=== PATIENT | male | born 1995 | race Two or more races ===

== ENCOUNTER 2020-03-18 23:03 | Emergency (ER) | payer SELFPAY ==
[~2020-03-18] VITALS: Ht 162.6 cm; Wt 63.6 kg
--- NOTE | 2020-03-18 23:25 | PHYS DOC ---
General Adult EDM: Chief Complaint: OVERDOSE HPI: HPI: The history was obtained from the patient and EMS. Patient is a 24-year-old male with no reported PMH who presents with a chief complaint of unresponsiveness. EMS were called to the patient's house for unresponsiveness. They state the family called because patient was found down. Upon EMS arrival the patient had agonal respirations with a GCS of 3. They did administer 2 mg of intravenous Narcan which did improve the patient's responsiveness almost immediately. Patient tells me that he does not have any recollection of events leading up to his unresponsiveness. Denies any drug or alcohol abuse. Denies any pill ingestions today. Denies any suicidal homicidal ideations. States he does not have any physical complaints. Has no recollection of the events leading up to his presentation to the emergency department. Review of Systems: Review of Systems: Constitutional: Positive for unresponsiveness. Eyes: Denies change in visual acuity. [] HENT: Denies nasal congestion or sore throat. [] Respiratory: Denies cough or shortness of breath. [] Cardiovascular: Denies chest pain or edema. [] GI: Denies abdominal pain, nausea, vomiting, bloody stools or diarrhea. [] : Denies dysuria. [] Musculoskeletal: Denies back pain or joint pain. [] Integument: Denies rash. [] Neurologic: Denies headache, focal weakness or sensory changes. [] Endocrine: Denies polyuria or polydipsia. [] Lymphatic: Denies swollen glands. [] Psychiatric: Denies depression or anxiety. [] Heart Score: Risk Factors: Risk Factors: DM, Current or recent (<one month) smoker, HTN, HLP, family history of CAD, obesity. Risk Scores: Score 0 - 3: 2.5% MACE over next 6 weeks - Discharge Home Score 4 - 6: 20.3% MACE over next 6 weeks - Admit for Clinical Observation Score 7 - 10: 72.7% MACE over next 6 weeks - Early Invasive Strategies Physical Exam: PE: Constitutional: Well developed, well nourished, no acute distress, non-toxic appearance. [] HENT: Normocephalic, atraumatic, bilateral external ears normal, oropharynx moist, no oral exudates, nose normal. [] Eyes: PERRLA, EOMI, conjunctiva normal, no discharge. [] Neck: Normal range of motion, no tenderness, supple, no stridor. [] Cardiovascular:Heart rate regular rhythm, no murmur [] Lungs & Thorax: Bilateral breath sounds clear to auscultation [] Abdomen: soft, no tenderness, no masses, no pulsatile masses. [] Skin: Warm, dry, no erythema, no rash. [] Back: No tenderness, no CVA tenderness. [] Extremities: No tenderness, no cyanosis, no clubbing, ROM intact, no edema. [] Neurologic: Alert with intact cognitive function. No aphasia, dysarthria, or neglect. GCS 15. Pupils 3 mm briskly reactive b/l. No APD present. Cranial nerves 2-12 grossly intact; no facial asymmetry present, tongue midline, shoulder shrugging strength intact. Strength 5/5 and symmetric throughout. Light touch sensation intact throughout. Cerebellar testing appropriate without evidence of dysdiadochokinesia. DTR's 2+ in all 4 extremities. Negative pronator drift bilaterally. Gait normal Psychologic: Affect normal, judgement normal, mood normal. [] Current Patient Data: Labs: Laboratory Tests Test 03/18/20 23:30 03/19/20 00:20 White Blood Count 10.9 x10^3/uL Red Blood Count 5.09 x10^6/uL Hemoglobin 14.3 g/dL Hematocrit 41.9 % Mean Corpuscular Volume 82 fL Mean Corpuscular Hemoglobin 28 pg Mean Corpuscular Hemoglobin Concent 34 g/dL Red Cell Distribution Width 13.3 % Platelet Count 239 x10^3/uL Neutrophils (%) (Auto) 78 % Lymphocytes (%) (Auto) 15 % Monocytes (%) (Auto) 5 % Eosinophils (%) (Auto) 1 % Basophils (%) (Auto) 1 % Neutrophils # (Auto) 8.5 x10^3/uL Lymphocytes # (Auto) 1.7 x10^3/uL Monocytes # (Auto) 0.6 x10^3/uL Eosinophils # (Auto) 0.1 x10^3/uL Basophils # (Auto) 0.1 x10^3/uL Sodium Level 136 mmol/L Potassium Level 3.1 mmol/L Chloride Level 99 mmol/L Carbon Dioxide Level 26 mmol/L Anion Gap 11 Blood Urea Nitrogen 14 mg/dL Creatinine 1.1 mg/dL Estimated GFR (Cockcroft-Gault) 83.7 BUN/Creatinine Ratio 13 Glucose Level 206 mg/dL Calcium Level 8.5 mg/dL Total Bilirubin 0.4 mg/dL Aspartate Amino Transf (AST/SGOT) 183 U/L Alanine Aminotransferase (ALT/SGPT) 153 U/L Alkaline Phosphatase 80 U/L Total Protein 7.3 g/dL Albumin 4.1 g/dL Albumin/Globulin Ratio 1.3 Lipase 102 U/L Salicylates Level < 2.8 mg/dL Salicylate Last Dose Date Unk Salicylate Last Dose Time Unk Acetaminophen Level < 2 mcg/ml Acetaminophen Last Dose Date Unk Acetaminophen Last Dose Time Unk Ethyl Alcohol Level 113 mg/dL Urine Opiates Screen Neg Urine Methadone Screen Neg Urine Barbiturates Neg Urine Phencyclidine Screen Neg Urine Amphetamine/Methamphetamine Neg Urine Benzodiazepines Screen Neg Urine Cocaine Screen Neg Urine Cannabinoids Screen Neg Urine Ethyl Alcohol Pos Vital Signs: Vital Signs Date Time Temp Pulse Resp B/P (MAP) Pulse Ox O2 Delivery O2 Flow Rate FiO2 03/18/20 23:05 97.9 93 16 122/67 (85) 100 Room Air 97.9 EKG: EKG: EKG consistent with normal sinus rhythm. Ventricular rate of 85 bpm. Devils [place]bow normal. Intervals normal. High voltage QRS complex. No deep dagger like Q waves appreciated. Otherwise normal EKG. [] Radiology/Procedures: Radiology/Procedures: [facility] [address] [place] [address] IMAGING REPORT Signed PATIENT: KERWIN BARRERA JACCOUNT: [id number] : 1995 LOCATION: ER AGE: 24 SEX: M EXAM STATUS: REG ER ORD. PHYSICIAN: LINA ROCA DO REASON: AMS PROCEDURE: CT HEAD AND CERVICAL SPINE WO INDICATION: Reason: AMS / Spl. Instructions: / History: COMPARISON: None. TECHNIQUE: Axial CT images obtained through the head and cervical spine without intravenous contrast. Coronal and sagittal reformats processed of cervical spine. One or more of the following individualized dose reduction techniques were utilized for this examination: 1. Automated exposure control; 2. Adjustment of the mA and/or kV according to patient size; 3. Use of iterative reconstruction technique. FINDINGS: Head: No intracranial hemorrhage. No midline shift. Basal cisterns patents. Ventricles and sulci are within normal limits. No acute osseous abnormality. Orbits and paranasal sinuses unremarkable. Cervical: No definite acute fracture. No dislocation. No evidence of perivertebral hematoma. Mucosal thickening of the left greater than right maxillary sinus. IMPRESSION: * No acute intracranial hemorrhage. * No acute cervical spine fracture. Electronically signed by: Wayne Reyes MD (03/19/2020 12:27 AM) [id number] DICTATED and SIGNED BY: WAYNE REYES MD DATE: 03/19/20 0027 [] Course & Med Decision Making: Course & Med Decision Making Pertinent Labs and Imaging studies reviewed. (See chart for details) [] Patient is a 24-year-old male who presents with a chief complaint of unresponsiveness via EMS. He was initially with agonal respirations and a GCS of 3 on EMS arrival. He did respond to milligrams of intravenous Narcan. Upon arrival the patient is alert and oriented x3. He has no recollection of events leading up to EMS arrival. No focal neurologic deficits appreciated. Vital signs overall reassuring. Broad work-up was obtained given the patient has no recollection of ingestions prior to EMS arrival. Patient does have an elevated alcohol level. UDS grossly unremarkable. Negative for opiates. Remainder of labs unremarkable. CT imaging nonacute. At this time the exact cause of the patient's unresponsiveness is unclear. He may have ingested a synthetic opiate not detectable by our urine analysis. Patient was monitored in the emergency department. Repeat examination he is sleeping comfortably. He is easily arousable to voice. He has tolerated p.o. His vital signs been stable. At this time I do feel he is appropriate for discharge home. He does appear clinically sober and does have a friend at bedside to drive him home. Return precautions discussed and understood. Stable for discharge. Danitza Disclaimer: Danitza Disclaimer: This electronic medical record was generated, in whole or in part, using a voice recognition dictation system. Departure Departure Impression: Primary Impression: Alcohol intoxication Qualified Codes: F10.920 - Alcohol use, unspecified with intoxication, uncomplicated Disposition: 01 HOME, SELF-CARE Condition: STABLE Patient Instructions: Substance Abuse-Brief Additional Instructions: Please follow-up with your primary care physician in the next 2 to 3 days. Ananda [facility] [address] [place] [address] [facility] [address] [place] [address] [facility] [address] [facility] [place] [address] [facility] [address] [place] [address] [facility] [address] [place] [address] [facility] [address] [place] [address] [facility] [address] [place] [address] [facility] [address] [place] [address] [facility] [address] [place] [address] [facility] [address] [place] [address] Justicifation of Admission Dx: Justifications for Admission: Justification of Admission Dx: N/A LINA ROCA DO Mar 18, 2020 23:25
[2020-03-18 23:41] LABS: BASO # 0.1 x10^3/uL (0.0-0.2); BASO % 1 % (0-3); EOS # 0.1 x10^3/uL (0.0-0.7); EOS % 1 % (0-3); HEMATOCRIT 41.9 % (39.0-53.0); HEMOGLOBIN 14.3 g/dL (13.0-17.5); LYMPH # 1.7 x10^3/uL (1.0-4.8); LYMPH % 15 % (24-48); MEAN CORPUSCULAR HEMOGLOBIN 28 pg (25-35); MEAN CORPUSCULAR HGB CONC 34 g/dL (31-37); MEAN CORPUSCULAR VOLUME 82 fL (79-100); MONO # 0.6 x10^3/uL (0.0-1.1); MONO % 5 % (0-9); NEUT # 8.5 x10^3/uL (1.8-7.7); NEUT % 78 % (31-73); PLATELET COUNT 239 x10^3/uL (140-400); RED BLOOD COUNT 5.09 x10^6/uL (4.30-5.70); RED CELL DISTRIBUTION WIDTH 13.3 % (11.5-14.5); WHITE BLOOD COUNT 10.9 x10^3/uL (4.0-11.0)
[2020-03-18 23:52] LABS: CALCIUM 8.5 mg/dL (8.5-10.1); CREATININE 1.1 mg/dL (0.7-1.3); GFR 83.7; POTASSIUM 3.1 mmol/L (3.5-5.1)
[2020-03-18 23:57] LABS: ACETAMIN < 2 mcg/ml (10-30); ETHANOL 113 mg/dL (0-10); SALIC < 2.8 mg/dL (2.8-20.0)
[2020-03-18 23:59] LABS: ALBUMIN 4.1 g/dL (3.4-5.0); ALBUMIN/GLOBULIN RATIO 1.3 (1.0-1.7); TOTAL BILIRUBIN 0.4 mg/dL (0.2-1.0); TOTAL PROTEIN 7.3 g/dL (6.4-8.2)
--- NOTE | 2020-03-19 00:30 | RAD ---
INDICATION: Reason: AMS / Spl. Instructions: / History: COMPARISON: None. TECHNIQUE: Axial CT images obtained through the head and cervical spine without intravenous contrast. Coronal and sagittal reformats processed of cervical spine. One or more of the following individualized dose reduction techniques were utilized for this examination: 1. Automated exposure control; 2. Adjustment of the mA and/or kV according to patient size; 3. Use of iterative reconstruction technique. FINDINGS: Head: No intracranial hemorrhage. No midline shift. Basal cisterns patents. Ventricles and sulci are within normal limits. No acute osseous abnormality. Orbits and paranasal sinuses unremarkable. Cervical: No definite acute fracture. No dislocation. No evidence of perivertebral hematoma. Mucosal thickening of the left greater than right maxillary sinus. IMPRESSION: * No acute intracranial hemorrhage. * No acute cervical spine fracture. Electronically signed by: Gil Reyes MD (03/19/2020 12:27 AM) [id number]
[2020-03-19 00:35] LABS: AMPHETAMINE/METHAMPHETAMINE NEG (NEG); BARBITURATES NEG (NEG); BENZODIAZEPINES NEG (NEG); CANNABINOIDS NEG (NEG); COCAINE NEG (NEG); METHADONE NEG (NEG); OPIATES NEG (NEG); PHENCYCLIDINE NEG (NEG)
[2020-03-19] MEDS ORDERED: ONDANSETRON ODT 4 MG TAB.RAPDIS. ONE (01:38)
[2020-03-19 01:47] VITALS: BP 127/63
--- NOTE | 2020-03-19 04:17 | EKG ---
[facility] [address] [place] [address] Test Date: 2020-03-18 Test Time: 23:47:01 Pat Name: KERWIN BARRERA Department: Room: Gender: M Manager Battery: : 1995 Requested By: LINA ROCA Order Number: [id number] Reading MD: Measurements Intervals [place] Rate: 85 P: 41 GA: 158 QRS: 53 QRSD: 102 T: 13 QT: 374 QTc: 451 Interpretive Statements SINUS RHYTHM CONSIDER LEFT VENTRICULAR HYPERTROPHY POSSIBLY ABNORMAL ECG RI6.02 No previous ECG available for comparison
== END 2020-03-19 01:56 | disposition home or self-care (01) ==
LOC: ER 23:03
DX: F10.129 Alcohol abuse with intoxication, unspecified (principal); Y90.5 Blood alcohol level of 100-119 mg/100 ml; R40.4 Transient alteration of awareness; R51 Headache; M54.2 Cervicalgia; I51.7 Cardiomegaly
CPT/HCPCS: 36415; 70450; 72125; 80053; 80307; 80329; 83690; 85025; 93005; 99285; G0480